=== PATIENT | male | born 1950 | race Hispanic/Latino ===

== ENCOUNTER → 2019-08-16 | Day surgery (SDC) | payer OTHER ==
[2019-08-14 15:48] LABS: BASOPHILS % 0.7 % (0.0-1.0); EOSINOPHILS # (AUTO) 0.1 (0.0-0.4); EOSINOPHILS % 2.4 % (0.0-6.0); HEMATOCRIT 40.7 % (38.2-49.6); HEMOGLOBIN 14.3 g/dL (14.0-18.0); LYMPHOCYTES # (AUTO) 2.2 (1.0-3.2); LYMPHOCYTES % 41.3 % (18.0-39.1); MEAN CORPUSCULAR HEMOGLOBIN 32.7 pg (28-32); MEAN CORPUSCULAR HGB CONC 35.1 g/dL (31-35); MEAN CORPUSCULAR VOLUME 93.1 fL (81-99); MONOCYTES # (AUTO) 0.6 (0.2-0.8); MONOCYTES % 10.8 % (4.4-11.3); NEUTROPHILS # (AUTO) 2.4 (2.1-6.9); NEUTROPHILS % 44.6 % (38.7-80.0); PLATELET COUNT 124 x10e3/uL (140-360); RED BLOOD COUNT 4.37 x10e6/uL (4.3-5.7); RED CELL DISTRIBUTION WIDTH 11.3 % (11.7-14.4)
[2019-08-14 16:15] LABS: BLOOD UREA NITROGEN 11 mg/dL (7-26); BUN/CREATININE RATIO 11 (6-25); CALCIUM 9.3 mg/dL (8.4-10.2); CARBON DIOXIDE 26 mmol/L (22-29); CHLORIDE 104 mmol/L (98-107); EST GLOMERULAR FILTRATION RATE > 60 ML/MIN (60-); GLUCOSE 98 mg/dL (74-118); SODIUM 140 mmol/L (136-145)
--- NOTE | 2019-08-14 16:18 | Diagnostic Imaging Report ---
Chest, 2 views, 08/14/2019. History: Preop, hernia repair. Comparison: None available. Findings: The cardiomediastinal silhouette and pulmonary vasculature are within normal limits. There is biapical pleural thickening. The lungs are clear without evidence of consolidation or pleural effusion. Degenerative changes are present throughout the thoracic spine. There are no acute osseous or soft tissue abnormalities. Impression: No acute cardiopulmonary abnormality. Signed by: Garrett Eller on 08/14/2019 4:15 PM
[~2019-08-16] MED LIST: BUPIVACAINE 0.25% 30ML SDV INJ ONE; BUPIVACAINE 0.5%/EPI 30 ML SDV INJ ONE; DEXAMETHASONE SOD PHOS INJ 4 MG/ML VIAL ONE; FENTANYL CITRATE/PF 100MCG/2 ML INJ ONE; HYDROCODONE/APAP 7.5MG-325MG 1 EA TAB ONE; KETOROLAC TROMETHAMINE 30 MG/ML VIAL ONE; LIDOCAINE 1% W/EPINEPHRINE 20 ML VIAL ONE; LIDOCAINE HCL 2% LOCAL INJ 5 ML SDV VIAL INJ ONE; MIDAZOLAM HCL 2 MG/2 ML VIAL ONE; MULTI-VITAMIN1 EACH PO; ONDANSETRON HCL INJ 2MG/ML 2ML 2 MG/ML VIAL ONE; PROPOFOL IV EMULSION 10 MG/ML 20 ML VIAL ONE; ROCURONIUM BROMIDE 10 MG/ML 5ML VIAL ONE; SEVOFLURANE INHAL SOLN 250 ML PEN BTL ONE; ZYRTEC10 MG PO
--- OUTSIDE RECORDS SUMMARY | 2019-08-16 06:52 | XMS REPORT ---
[facility] Address Unknown Phone Unavailable Care Team Providers Care Heading Pinner Name Role Phone Rudolph MADSEN Unavailable Unavailable Problems This patient has no known problems. Allergies, Adverse Reactions, Alerts This patient has no known allergies or adverse reactions. Medications This patient has no known medications. Results Test Description Test Time Test Comments Text Results Atomic Results Result Comments CHEST 2 VIEWS 2019-08-14 16:14:00 [facility] [address] [address] Patient Name: RUBEN BE MR #: [id number] : 1950 Age/Sex: 69/M Req #: [id number] Adm Physician: Ordered by: VALERIO MADSEN MD Report #: [id number] Location: OR Room/Bed: Procedure: [id number] DX/CHEST 2 VIEWS Exam Date: 08/14/19 Exam Time: 1550 REPORT STATUS: Signed Chest, 2 views, 08/14/2019. History: Preop, hernia repair. Comparison: None available. Findings: The cardiomediastinal silhouette and pulmonary vasculature are within normal limits. There is biapical pleural thickening. The lungs are clear without evidence of consolidation or pleural effusion. Degenerative changes are present throughout the thoracic spine. There are no acute osseous or soft tissue abnormalities. Impression: No acute cardiopulmonary abnormality. Signed by: Miller Eller on 08/14/2019 4:15 PM Dictated By: MILLER ELLER MD 161 Transcribed By: ARCHIE on 08/14/19 161 COPY TO: VALERIO MADSEN MD
[2019-08-16 13:40] VITALS: BP 149/90
--- NOTE | 2019-08-16 19:06 | Operative Report ---
DATE OF PROCEDURE: 08/16/2019 SURGEON: Chuy Mclean MD PREOPERATIVE DIAGNOSIS: Ventral and umbilical hernias. POSTOPERATIVE DIAGNOSIS: Ventral and umbilical hernias. OPERATION PERFORMED: Repair of ventral and umbilical hernias with Ultrapro mesh. ANESTHESIA: General. COMPLICATIONS: None. ESTIMATED BLOOD LOSS: Minimal. DESCRIPTION OF PROCEDURE: With the patient lying in bed in the supine position under good general anesthesia, the abdomen was prepped with Betadine solution and draped in the usual manner. An upper midline incision was made. It was carried down through the subcutaneous tissue and immediately ventral hernia in the epigastric region became apparent. The fascia was then dissected all the way around. The umbilicus was then also detached and the umbilical hernia was dissected with normal fascia all the way around. The umbilical hernia was then from the fascia and reduced back to the intraabdominal cavity and the umbilical hernia was then closed transversely with interrupted sutures of 0 Ethibond. The ventral hernia was similarly dissected all the way around and reduced back to the intraabdominal cavity. The midline fascia was then plicated and closed, closing the hernia with interrupted sutures of 0 Ethibond. After this was done, Ultrapro mesh was then placed to cover all of the ventral and umbilical hernia area and this was tacked all the way around with interrupted sutures of 0 Ethibond and 0 Vicryl. This gives a satisfactory repair without any tension. The whole area was then thoroughly irrigated. Perfect hemostasis was ascertained. The umbilicus then tacked back down to the midline fascia with 3-0 Vicryl. The subcutaneous tissue was approximated with 2-0 Vicryl and the skin was closed with clips. A dressing was applied. The sponge, lap, and needle count was correct. The patient tolerated the procedure well and returned to the recovery room in stable condition. Chuy Mclean MD JLR/MODL /[id number]
== END | disposition home or self-care (01) ==
LOC: OR 06:50
PROVIDERS: ATTEND Surgery
DX: K43.9 Ventral hernia without obstruction or gangrene (principal); Z01.810 Encounter for preprocedural cardiovascular examination; Z01.812 Encounter for preprocedural laboratory examination; M62.08 Separation of muscle (nontraumatic), other site; K42.9 Umbilical hernia without obstruction or gangrene; I10 Essential (primary) hypertension
CPT/HCPCS: 36415; 49560; 49568; 71046; 80048; 85025; 93005; C1781; J1100; J1885; J2001; J2250; J2405; J2704; J3010

== ENCOUNTER 2021-12-24 19:30 | Emergency (ER) | payer MEDICARE, OTHER ==
[~2021-12-24] VITALS: Ht 175.3 cm; Wt 89.8 kg
[~2021-12-24 19:30] MED LIST changes: -BUPIVACAINE 0.25% 30ML SDV INJ ONE; -BUPIVACAINE 0.5%/EPI 30 ML SDV INJ ONE; -DEXAMETHASONE SOD PHOS INJ 4 MG/ML VIAL ONE; -FENTANYL CITRATE/PF 100MCG/2 ML INJ ONE; -HYDROCODONE/APAP 7.5MG-325MG 1 EA TAB ONE; -KETOROLAC TROMETHAMINE 30 MG/ML VIAL ONE; -LIDOCAINE 1% W/EPINEPHRINE 20 ML VIAL ONE; -LIDOCAINE HCL 2% LOCAL INJ 5 ML SDV VIAL INJ ONE; -MIDAZOLAM HCL 2 MG/2 ML VIAL ONE; -ONDANSETRON HCL INJ 2MG/ML 2ML 2 MG/ML VIAL ONE; -PROPOFOL IV EMULSION 10 MG/ML 20 ML VIAL ONE; -ROCURONIUM BROMIDE 10 MG/ML 5ML VIAL ONE; -SEVOFLURANE INHAL SOLN 250 ML PEN BTL ONE
[2021-12-24] MEDS ORDERED: SODIUM CHLORIDE 0.9% 1000ML 1,000 ML IV STA (19:59)
[2021-12-24 20:11] LABS: BASOPHILS % 0.5 % (0.0-1.0); EOSINOPHILS # (AUTO) 0.2 (0.0-0.4); EOSINOPHILS % 2.6 % (0.0-6.0); HEMATOCRIT 39.2 % (38.2-49.6); HEMOGLOBIN 13.4 g/dL (14.0-18.0); LYMPHOCYTES % 33.5 % (18.0-39.1); MEAN CORPUSCULAR HEMOGLOBIN 33.1 pg (28-32); MEAN CORPUSCULAR HGB CONC 34.2 g/dL (31-35); MEAN CORPUSCULAR VOLUME 96.8 fL (81-99); MONOCYTES # (AUTO) 0.5 (0.2-0.8); MONOCYTES % 8.2 % (4.4-11.3); NEUTROPHILS # (AUTO) 3.4 (2.1-6.9); PLATELET COUNT 133 x10e3/uL (140-360); RED BLOOD COUNT 4.05 x10e6/uL (4.3-5.7); RED CELL DISTRIBUTION WIDTH 11.4 % (11.7-14.4)
[2021-12-24 20:26] LABS: ALBUMIN 3.6 g/dL (3.5-5.0); ANION GAP 14.4 mmol/L (8-16); CALCIUM 8.8 mg/dL (8.4-10.2); CREATININE, SERUM 1.05 mg/dL (0.72-1.25); POTASSIUM 3.4 mmol/L (3.5-5.1)
[2021-12-24] MEDS ORDERED: IOPAMIDOL 370 MG/ML 100 ML INFUS..BTL INJ ONE (20:52)
[2021-12-24] MEDS ORDERED: SODIUM CHLORIDE 0.9% 100 ML ONE (20:52)
[2021-12-24] MEDS ORDERED: MECLIZINE HCL12.5 MG PO (22:10)
== END 2021-12-24 22:30 | disposition home or self-care (01) ==
LOC: ER 20:02
DX: R42 Dizziness and giddiness (principal)
CPT/HCPCS: 36415; 70496; 70498; 80053; 80320; 83880; 85025; 93005; 99284; J7030; J7050; Q9967

== ENCOUNTER 2025-04-29 09:55 | Emergency (ER) | payer MEDICARE ==
[~2025-04-29] VITALS: Ht 172.7 cm; Wt 88.9 kg
[~2025-04-29 09:55] MED LIST changes: +MECLIZINE HCL12.5 MG PO
[2025-04-29 10:10] VITALS: TEMP 98.6
[2025-04-29] MEDS: KETOROLAC TROMETHAMINE 30 MG/ML VIAL IM STA (10:28)
[2025-04-29] MEDS: TRAMADOL HCL 50 MG TAB PO ONE (10:28)
[2025-04-29] MEDS ORDERED: KETOROLAC TROME10 MG PO (12:21)
[2025-04-29 12:27] VITALS: PULSE 65; RESP 20; O2SAT 97
== END 2025-04-29 12:27 | disposition home or self-care (01) ==
LOC: ER 10:00
DX: S20.211A Contusion of right front wall of thorax, initial encounter (principal); W01.198A Fall on same level from slipping, tripping and stumbling with subsequent striking against other object, initial encounter; Y92.89 Other specified places as the place of occurrence of the external cause; I10 Essential (primary) hypertension
CPT/HCPCS: 71250; 99283; J1885